=== PATIENT | female | born 2000 | race Caucasian/White ===

== ENCOUNTER → 2022-05-28 15:33 | Outpatient (BNVA) | payer MEDICAID, SELFPAY | PROVIDERS: Family Provider Family Medicine; Visit Provider Emergency Medicine | DX: R30.0 Dysuria (principal); N39.0 Urinary tract infection, site not specified | CPT/HCPCS: 81000 ==

== ENCOUNTER → 2022-08-13 16:49 | Outpatient (BNVA) | payer MEDICAID, SELFPAY | PROVIDERS: Family Provider Family Medicine; Visit Provider Emergency Medicine | DX: R68.89 Other general symptoms and signs (principal); R11.0 Nausea; J10.1 Influenza due to other identified influenza virus with other respiratory manifestations | CPT/HCPCS: 87400 ==

== ENCOUNTER 2022-08-29 04:17 | Emergency (ER) | payer MEDICAID, SELFPAY ==
[2022-08-29] VITALS (14 sets, daily range): BP systolic 143–169; BP diastolic 72–120; PULSE 94–127; RESP 16–26; TEMP 36.7; O2SAT 97–100; BMI 65.4
--- NOTE | 2022-08-29 04:38 | ED_ITS ---
HPI - Skin/Abscess/Foreign Bdy General: Chief complaint: Skin/Abscess/Foreign Body Stated complaint: Rectal Problems-Sent here for Surgery Time Seen by Provider: 08/29/22 04:28 Source: patient Mode of arrival: ambulatory Limitations: no limitations History of Present Illness: 22-year-old female who states that she had used a butt plug with her boyfriend she states it was rubber she states that it was placed too far in her rectum past the base and she has been unable to remove it she states she was seen at another facility who did transfer here and they were not able to remove it. She has some discomfort denies any worsening proving factors. Associated symptoms: Deny chills, fever(s), nausea or vomiting Review of Systems Const: Denies: fever(s), chills, body aches or change in appetite Eyes: Denies: blurry vision or eye discomfort ENMT: Denies: throat pain or dental pain Card: Denies: chest pain Resp: Denies: dyspnea GI: Denies: abdominal pain, nausea, vomiting or diarrhea : Denies: dysuria Musc: Denies: neck pain or back pain Skin/Breast: Denies: rash Neuro: Denies: headache(s) Psych: Denies: depression Dougie/Lymph: Denies: easy bruising All/Imm: Denies: urticaria PFSH ED PFSH: Social History Smoking and tobacco status: never smoked Female Reproductive History: Spontaneous abortions: No Physical Exam Const: COMMON NORMALS: no acute distress, patient oriented x3 and healthy appearing HENMT: COMMON NORMALS: normocephalic and atraumatic HEAD & SCALP: normocephalic and atraumatic Eye: COMMON NORMALS: Equal, round and reactive pupils present and EOMs intact bilaterally PUPIL: Yes Equal, round and reactive pupils present Neck/C-Spine: COMMON NORMALS: full ROM and supple Chest: COMMONS NORMALS: normal inspection of the chest and normal palpation of entire chest wall Resp: COMMON NORMALS: normal respiratory effort, No retractions, No use of accessory muscles and clear to auscultation bilaterally AUSCULTATION: clear to auscultation bilaterally Cardio: COMMON NORMALS: regular rate, regular rhythm and No murmurs present (Cardio) RATE: regular rate RHYTHM: regular rhythm GI: COMMON NORMALS: Normal to inspection, nondistended, normoactive bowel sounds present, Soft to palpation, non-tender and no masses PALPATION: Yes So ft to palpation Extremity: COMMON NORMALS: normal to inspection and full ROM Neuro: COMMON NORMALS: patient oriented x3, moves all extremities and no focal motor deficits Psych: COMMON NORMALS: mental status grossly normal, Normal thought process present and cooperative THOUGHT PROCESS: Normal thought process present Skin: COMMON NORMALS: no rashes or lesions noted and no wounds GENERAL SKIN EXAM: no rashes or lesions noted Procedures Foreign Body Removal Time Out Performed: yes Site: rectum Description of foreign body: sex toy Sedation/Analgesia: ketamine Technique: manual removal Confirmed by:: direct visualization Complications: none Post-procedure exam: awake, alert Procedural Sedation Indication: other (foreign body rectum) ASA Class: I Time of Last PO Intake: 23:00 Preparation: hall monitor applied and pulse oximeter Ketamine dose (mg): 230 Patient Tolerated Procedure: well Complications: none Course Vital Signs: Vital signs: Vital Signs Temperature 98.0 F 08/29/22 04:21 Pulse Rate 113 H 08/29/22 05:25 Respiratory Rate 24 H 08/29/22 05:25 Blood Pressure 169/85 08/29/22 05:25 Pulse Oximetry 98 08/29/22 04:21 Oxygen Delivery Me thod 08/29/22 05:04 MDM - Skin/Abscess/Foreign Bdy Medicial Decision Making Patient presents here with a rectal foreign body she had a butt plug stuck in her rectum I was able to remove it under procedural sedation patient stable for discharge she is awake and alert now return if worsening. Discharge Plan Discharge Patient Disposition: Home Clinical Impression: Foreign body anus/rectum Condition: Stable Prescriptions: No Action spironolactone 50 mg tablet 50 mg PO DAILY lamotrigine 25 mg tablet 50 mg PO BID [id number] [Bromfed DM] 2-30-10 mg/5 mL syrup 7.5 ml PO Q6H PRN (Reason: cold symptoms) Qty: 160 0RF ondansetron 4 mg tablet,disintegrating 4 mg PO Q6H PRN (Reason: nausea and vomiting) Qty: 12 0RF Rx Instructions: 340b please oseltamivir [Tamiflu] 75 mg capsule 75 mg PO BID 4 Days Qty: 8 0RF albuterol sulfate 90 mcg/actuation HFA aerosol inhaler 2 puff inhalation Q6H PRN (Reason: shortness of breath or wheezing) Qty: 8.5 0RF Discharge Orders: Discharge ED (Routine); Ordered 08/29/22 Ordered By: Starr Becerra Referrals: Juan Ireland MD [Primary Care Provider] - Discharge Diet: Advance as tolerated Discharge Activity: Resume usual activity Patient Instructions: Foreign Body - Rectum Coding Level of Care Code 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
== END 2022-08-29 06:30 | disposition home or self-care (01) ==
PROVIDERS: Emergency Provider Emergency Medicine; PCP Family Medicine
DX: T18.5XXA Foreign body in anus and rectum, initial encounter (principal); X58.XXXA Exposure to other specified factors, initial encounter
CPT/HCPCS: 99285; J3490

== ENCOUNTER → 2023-05-01 14:17 | Outpatient (BNVA) | payer MEDICAID, SELFPAY | PROVIDERS: PCP Family Medicine; Visit Provider Nurse Practitioner Family | DX: M25.531 Pain in right wrist (principal); X50.3XXA Overexertion from repetitive movements, initial encounter | CPT/HCPCS: 73110 ==